=== PATIENT | female | born 1935 | race Caucasian/White ===

== ENCOUNTER 2017-04-28 19:59 | Emergency (ER) | payer OTHER ==
[~2017-04-28] VITALS: Ht 157.5 cm; Wt 108.1 kg
[~2017-04-28 19:59] MED LIST: ASPI81TA21 PO; DONE10TA14 PO; LEVO50TA4 PO; NAME10TA PO; NORT1CAP53 PO; PRAV10 PO; PROP80 PO; STOO100T PO
[2017-04-28 20:14] VITALS: BP 154/67; PULSE 67; RESP 16; TEMP 98.4; O2SAT 95
[2017-04-28] MEDS ORDERED: DONE10TA7 PO (20:39)
[2017-04-28] MEDS ORDERED: LEVO50TA4 PO (20:39)
[2017-04-28] MEDS ORDERED: PRAV10TA PO (20:39)
[2017-04-28] MEDS ORDERED: CHOL1CAP14 PO (20:39)
[2017-04-28] MEDS ORDERED: MEMA28CA PO (20:39)
[2017-04-28] MEDS ORDERED: NORT25CA PO (20:39)
[2017-04-28] MEDS ORDERED: PROP80CA PO (20:39)
[2017-04-28] MEDS ORDERED: ASPI-110 PO (20:39)
[2017-04-28] MEDS ORDERED: IPRA0.06 EACH NARE (20:40)
--- NOTE | 2017-04-28 21:24 | PD ---
HPI Chief Complaint: Fall Time Seen by Provider: 20:45 Travel History International Travel<30 days: No Contact w/Intl Traveler<30days: No Traveled to known affect area: No History of Present Illness HPI 81-year-old female with hypertension dyslipidemia hypothyroidism and dementia presents to the emergency department with family by private transportation for evaluation of bilateral forearm pain left shoulder pain left neck pain and head pain status post unwitnessed fall. relates most of the history as patient has memory disturbance. Patient reportedly was in the bathroom and he heard the patient fall and yell and went to her assistance. Upon his arrival the patient was awake. Patient did complain of bilateral arm pain affecting the forearms and left shoulder such that he was unable to assist her upright from the floor using her upper extremities due to complaint of pain. No deformity was noted. Patient was able to crawl to the bedside and with assistance get up on the bed and then subsequently walked to the car to be brought to the emergency room for evaluation. reports 1 week ago she did have a fall and didn't hit her head again without loss of consciousness. Patient reportedly had a CT brain done last week as an outpatient that was reportedly normal. Patient here complains of head pain as well as left-sided neck pain. Patient does not report any upper extremity or lower extremity numbness tingling or weakness. Patient does not take any blood thinning agents. Pain is estimated as 8/10 in intensity. No other complaints or injury reported. Patient denies back pain flank pain pelvic pain lower extremity pain and no right shoulder pain. Patient denies chest pain pleuritic chest pain rib pain shortness of breath abdominal pain and there is been no nausea or vomiting or recent febrile illness or respiratory illness. No report of bladder or bowel incontinence or saddle anesthesia. [facility] Past Medical History Narrative Medical Depression hypertension dyslipidemia hypothyroidism migraine hysterectomy appendectomy cholecystectomy; no tobacco use; nursing notes reviewed Depression: Yes Diminished Hearing: No Immunizations Current: Yes Migraines: Yes Thyroid Disease: Yes Tetanus Vaccination: Unknown Influenza Vaccination: Yes ?: Not Menopausal: Yes : 2 Para: 2 Past Surgical History Appendectomy: Yes Cholecystectomy: Yes Hysterectomy: Yes Social History Alcohol Use: Yes (OCC) Tobacco Use: No (FORMER) Substance Use: No Allergies-Medications (Allergen,Severity, Reaction): Coded Allergies: No Known Allergies (Unverified , 04/28/17) Reported Meds & Prescriptions Reported Meds & Active Scripts Active Reported Ipratropium Nasal 0.06% [place] 1 Danforth EACH NARE QID Levothyroxine (Levothyroxine Sodium) 50 Mcg Tab 50 Mcg PO DAILY D3 Maximum Strength (Cholecalciferol) 5,000 Unit Cap 5,000 Units PO DAILY Aspirin 81 (Aspirin) 81 Mg Tabdr 81 Mg PO DAILY Nortriptyline (Nortriptyline HCl) 25 Mg Cap 25 Mg PO HS Pravastatin 10 Mg Tab 10 Mg PO DAILY Propranolol ER 24 HR (Propranolol HCl) 80 Mg Cap 80 Mg PO DAILY Donepezil 10 Mg Tab 10 Mg PO HS Namenda Xr (Memantine) 28 Mg Caper 28 Mg PO DAILY Review of Systems Except as stated in HPI: all other systems reviewed are Neg General / Constitutional: No: Fever Eyes: No: Visual changes HENT: Positive: Headaches, Neck Pain Cardiovascular: No: Chest Pain or Discomfort Respiratory: No: Shortness of Breath Gastrointestinal: No: Nausea, Vomiting, Abdominal Pain Genitourinary: No: Pelvic Pain, Flank Pain Musculoskeletal: Positive: Pain (left shoulder bilateral forearm), No: Edema Skin: No Rash Neurologic: No: Weakness Psychiatric: No: Anxiety Hematologic/Lymphatic: No: Easy Bruising Physical Exam Narrative GENERAL: Well-developed well-nourished female in no acute distress no respiratory distress. GCS 14(baseline per ). SKIN: Warm and dry. HEAD: Atraumatic. Normocephalic except for posterior scalp soft tissue swelling and tenderness to palpation. EYES: Pupils equal and round. No scleral icterus. No injection or drainage. ENT: No nasal bleeding or discharge. Mucous membranes pink and moist. NECK: Trachea midline. No JVD. Except to left-sided paracervical tenderness to palpation no bony step-off. CARDIOVASCULAR: Regular rate and rhythm. Chest wall: Nontender no point tenderness. RESPIRATORY: No accessory muscle use. Clear to auscultation. Breath sounds equal bilaterally. GASTROINTESTINAL: Abdomen soft, non-tender, nondistended. Hepatic and splenic margins not palpable. MUSCULOSKELETAL: Extremities without clubbing, cyanosis, or edema. No obvious deformities. Bilateral forearm tenderness to palpation without deformity or edema wrist range of motion intact bilaterally track template maker strength decreased secondary to complain of forearm pain but capillary refill brisk and less than 2 seconds per digit radial pulses 2+ bilaterally. Pain with range of motion of left shoulder without soft tissue swelling or point tenderness. NEUROLOGICAL: Awake and alert. No obvious cranial nerve deficits. Motor grossly within normal limits. Five out of 5 muscle strength in the arms and legs. No pronator drift. No limb ataxia. Normal speech. PSYCHIATRIC: Appropriate mood and affect; insight and judgment normal. Data Data Last Documented VS Vital Signs Date Time Temp Pulse Resp B/P Pulse Ox O2 Delivery O2 Flow Rate FiO2 04/28/17 20:40 18 Room Air 04/28/17 20:14 98.4 67 154/[address] Brain W/O Iv Contrast(Rout) (04/28/17 ) Ct Cerv Spine W/O Contrast (04/28/17 ) Shoulder, Complete (>2vws) (04/28/17 ) Forearm (2vws) (04/28/17 ) Forearm (2vws) (04/28/17 ) Ice/Cold Pack (04/28/17 20:45) Splint Or Brace Apply/Monitor (04/28/17 22:17) Support Splint (04/28/17 22:17) Wrist, Complete ([id number]) (04/28/17 ) Sling Cradle Arm (04/28/17 ) Fiberglass Sugartong Sp Ad Arm (04/28/17 ) Acetaminophen (Tylenol) (04/28/17 22:45) MDM Medical Decision Making Medical Screen Exam Complete: Yes Emergency Medical Condition: Yes Medical Record Reviewed: Yes Interpretation(s) Last Impressions Shoulder X-Ray 04/28/17 0000 Signed Impressions: Service Date/Time: April 21:22 - CONCLUSION: Degenerative change without fracture. Parth Eduardo MD FACR Radius/Ulna X-Ray 04/28/17 0000 Signed Impressions: Service Date/Time: April 21:15 - CONCLUSION: Minimally impacted fracture radial styloid. Parth Eduardo MD FACR Radius/Ulna X-Ray 04/28/17 0000 Signed Impressions: Service Date/Time: April 21:11 - CONCLUSION: Negative for fracture or dislocation. Follow up in 7-10 days is suggested if symptoms persist. Parth Eduardo MD FACR Head CT 04/28/17 0000 Signed Impressions: Service Date/Time: April 21:51 - CONCLUSION: Negative for acute process. Parth Eduardo MD FACR Cervical Spine CT 04/28/17 0000 Signed Impressions: Service Date/Time: April 21:51 - CONCLUSION: Multilevel focal spine degenerative. Moderate to severe bilateral foraminal stenosis present at many levels. There is moderate spinal stenosis with probable short segment cord compression at C5/C6 and C6/C7 and generally mild spinal stenosis at other levels. Please see above. Isra Cabrera MD Vital Signs Date Time Temp Pulse Resp B/P Pulse Ox O2 Delivery O2 Flow Rate FiO2 04/28/17 20:40 18 Room Air 04/28/17 20:14 98.4 67 16 154/67 95 Differential Diagnosis Mechanical fall, minor CHI, ICH, cervical spine sprain strain unlikely fracture , left shoulder contusion sprain strain fracture rotator cuff injury bilateral forearm contusion versus fracture Narrative Course Ice pack applied; imaging studies ordered Left shoulder x-ray: No acute displaced fracture subluxation or dislocation identified, Left forearm x-ray: Ulnar styloid fracture question distal radius fracture, Right forearm x-ray: Positive distal radius fracture with minimal impaction; therefore due to fractures identified to obtain actual x-rays of the bilateral wrists especially since his for poorly visualized fracture of the left wrist. Diagnosis Primary Impression: Right wrist fracture Qualified Code: S62.101A - Closed fracture of right wrist, initial encounter Additional Impression: Degenerative joint disease of cervical spine Qualified Code: M47.812 - Spondylosis of cervical region without myelopathy or radiculopathy Referrals: Orthopedist call for appointment CALL office in the AM to schedule appointment Primary Care Physician 1 day Patient Instructions: General Instructions Additional Instructions: Wear splint Follow-up with primary care provider times one day --- for close follow-up and for orthopedic referral Follow-up with orthopedic surgeon call office in a.m. to schedule follow-up appointment; correctional supervisor orthopedist is Dr. Brewster Take pain medication as prescribed as needed for pain greater than 5/10 in intensity or may use Tylenol per package instructions for pain or for fever 100.4F or greater Return to the emergency department for any concerns or change in condition Use ice intermittently to areas of soft tissue swelling for comfort purposes Wear sling to right upper extremit Med/Other Pt SpecificInfo: Prescription(s) given Scripts Promethazine (Phenergan)25 Mg Qwgrio05.5-25 Mg PO Q6H PRN (NAUSEA OR VOMITING) # 10 TAB Ref 0 Prov:Ana Montero MD 04/28/17 Hydrocodone-Acetaminophen (Lortab)5-325 Mg Tab0.5-1 Tab PO Q6H PRN (PAIN) #10 TAB Ref 0 Prov:Ana Montero MD 04/28/17 Ana Montero MD Apr 28, 2017 21:24
--- NOTE | 2017-04-28 21:42 | RADRPT ---
EXAM DATE/TIME: 04/28/2017 21:11 [facility] COMPARISON: No previous studies available for comparison. INDICATIONS : Trauma post fall. MEDICAL HISTORY : None. SURGICAL HISTORY : None. ENCOUNTER: Initial ACUITY: 1 day PAIN SCORE: 4/10 LOCATION: Left Forearm. FINDINGS: Two view examination of the left forearm demonstrates no evidence of fracture or dislocation. Bony m ineralization is normal. The soft tissue structures are intact. CONCLUSION: Negative for fracture or dislocation. Follow up in 7-10 days is suggested if symptoms persist. Parth Eduardo MD FACR on April 28, 2017 at 21:41 Board Certified Radiologist. This report was verified electronically.
--- NOTE | 2017-04-28 21:43 | RADRPT ---
EXAM DATE/TIME: 04/28/2017 21:15 [facility] COMPARISON: No previous studies available for comparison. INDICATIONS : Trauma post fall. MEDICAL HISTORY : None. SURGICAL HISTORY : None. ENCOUNTER: Initial ACUITY: 1 day PAIN SCORE: 4/10 LOCATION: Right Forearm. FINDINGS: There is minimally impacted fracture radial styloid and regional . Carpus is intact. CONCLUSION: Minimally impacted fracture radial styloid. Parth Eduardo MD FACR on April 28, 2017 at 21:42 Board Certified Radiologist. This report was verified electronically.
--- NOTE | 2017-04-28 21:50 | RADRPT ---
EXAM DATE/TIME: 04/28/2017 21:22 [facility] COMPARISON: No previous studies available for comparison. INDICATIONS : Trauma post fall. MEDICAL HISTORY : None. SURGICAL HISTORY : None. ENCOUNTER: Initial ACUITY: 1 day PAIN SCORE: 7/10 LOCATION: Left Shoulder. FINDINGS: Multiple view examination of the left shoulder demonstrates no evidence of fracture or dislocation. The glenohumeral and acromioclavicular joints are maintained. There is normal range of motion betwee n internal and external rotation. Bony mineralization is normal. Mild ACJ degenerative changes are noted. CONCLUSION: Degenerative change without fracture. Parth Eduardo MD FACR on April 28, 2017 at 21:48 Board Certified Radiologist. This report was verified electronically.
--- NOTE | 2017-04-28 22:37 | RADRPT ---
EXAM DATE/TIME: 04/28/2017 21:51 [facility] COMPARISON: No previous studies available for comparison. INDICATIONS : Frequent falls RADIATION DOSE: 62.13 CTDIvol (mGy) MEDICAL HISTORY : migraine SURGICAL HISTORY : Appendectomy. Rotator cuff, right.Cholecystectomy.Hysterectomy ENCOUNTER: Initial ACUITY: 1 week PAIN SCALE: 0/10 LOCATION: cranial TECHNIQUE: Multiple contiguous axial images were obtained of the head. Using automated exposure control and adj ustment of the mA and/or kV according to patient size, radiation dose was kept as low as reasonably a chievable to obtain optimal diagnostic quality images. DICOM format image data is available electro nically for review and comparison. FINDINGS: CEREBRUM: The ventricles are normal for age. No evidence of midline shift, mass lesion, hemorrhage or acute in farction. No extra-axial fluid collections are seen. POSTERIOR FOSSA: The cerebellum and brainstem are intact. The 4th ventricle is midline. The cerebellopontine angle i s unremarkable. EXTRACRANIAL: The visualized portion of the orbits is intact. SKULL: The calvaria is intact. No evidence of skull fracture. CONCLUSION: Negative for acute process. Parth Eduardo MD FACR on April 28, 2017 at 22:35 Board Certified Radiologist. This report was verified electronically.
[2017-04-28] MEDS ORDERED: ACETAMINOPHEN 325 MG TAB PO ONE (22:45)
--- NOTE | 2017-04-28 23:15 | RADRPT ---
EXAM DATE/TIME: 04/28/2017 21:51 [facility] COMPARISON: No previous studies available for comparison. INDICATIONS : Frequent falls RADIATION DOSE: 25.95 CTDIvol (mGy) MEDICAL HISTORY : migraine SURGICAL HISTORY : Rotator cuff, left. Cholecystectomy.Appendectomy.Hysterectomy ENCOUNTER: Initial ACUITY: 1 week PAIN SCALE: 0/10 LOCATION: neck TECHNIQUE: Volumetric scanning of the cervical spine was performed. Multiplanar reconstructions in the sagittal, coronal and oblique axial planes were performed. Using automated exposure control and adjustment o f the mA and/or kV according to patient size, radiation dose was kept as low as reasonably achievable to obtain optimal diagnostic quality images. DICOM format image data is available electronically f or review and comparison. FINDINGS: VERTEBRAE: Normal vertebral body height. ALIGNMENT: No evidence of subluxation. Mild to moderate degenerative changes are seen anteriorly and laterally at C1/C2. C2-C3: Mild disc space narrowing. Small, broad posterior disc osteophyte complex and moderate bilateral unco vertebral and facet osteoarthritis. No significant foraminal or spinal stenosis. C3-C4: Moderate to severe disc space narrowing and a moderate, broad posterior disc osteophyte complex. Ther e is moderate to severe bilateral uncovertebral and facet osteoarthritis. There is moderate to severe bilateral foraminal stenosis. Mild spinal stenosis. C4-C5: The disc has severe loss of height. Small, broad posterior disc osteophyte complex and moderate to se santo bilateral uncovertebral and facet osteoarthritis present. There is moderate to severe bilateral foraminal stenosis. There is mild spinal stenosis without cord compression. C5-C6: The disc has severe loss of height. There is a moderate, broad/diffuse disc osteophyte complex and mo derate to severe bilateral uncovertebral and facet osteoarthritis. There is moderate spinal stenosis and probably short segment cord compression. There is moderate to severe bilateral foraminal stenosis . C6-C7: The disc has severe loss of height. There is a small, broad/diffuse disc osteophyte complex and moder ate to severe bilateral uncovertebral and facet osteoarthritis. There is moderate spinal stenosis and probable short segment cord compression. There is moderate to severe bilateral foraminal stenosis. C7-T1: The disc as severe loss of height. There is a small, broad posterior disc osteophyte complex and mode rate bilateral facet osteoarthritis. There is mild to moderate spinal stenosis and moderate to severe bilateral foraminal stenosis. CONCLUSION: Multilevel focal spine degenerative. Moderate to severe bilateral foraminal stenosis present at many levels. There is moderate spinal stenosis with probable short segment cord compression at C5/C6 and C 6/C7 and generally mild spinal stenosis at other levels. Please see above. Isra Cabrera MD on April 28, 2017 at 23:05 Board Certified Radiologist. This report was verified electronically.
[2017-04-28] MEDS ORDERED: PROM25TA10 PO (23:36)
[2017-04-28] MEDS ORDERED: HYDR-3533 PO (23:36)
--- NOTE | 2017-04-28 23:44 | RADRPT ---
EXAM DATE/TIME: 04/28/2017 22:53 [facility] COMPARISON: No previous studies available for comparison. INDICATIONS : Trauma post fall. MEDICAL HISTORY : None. SURGICAL HISTORY : None. ENCOUNTER: Initial ACUITY: 1 day PAIN SCORE: 7/10 LOCATION: Left upper extremity wrist FINDINGS: Bones are diffusely osteopenic. There is a minimally displaced fracture in the physeal scar region of the distal left radius with slight dorsal angulation deformity. I don't see intra-articular involvem ent. No subluxations. Carpal bones are intact. CONCLUSION: Minimally displaced [id number] fracture of the distal radius with slight dorsal angulation. Isra Cabrera MD on April 28, 2017 at 23:42 Board Certified Radiologist. This report was verified electronically.
[2017-04-29 00:06] VITALS: BP 145/65; PULSE 66; RESP 18; O2SAT 97
== END 2017-04-29 01:09 | disposition home or self-care (01) ==
LOC: PHED 19:59
DX: S52.511A Displaced fracture of right radial styloid process, initial encounter for closed fracture (principal); S52.592A Other fractures of lower end of left radius, initial encounter for closed fracture; M47.812 Spondylosis without myelopathy or radiculopathy, cervical region; M25.512 Pain in left shoulder; R51 Headache; W18.30XA Fall on same level, unspecified, initial encounter; Y93.89 Activity, other specified; Y92.002 Bathroom of unspecified non-institutional (private) residence as the place of occurrence of the external cause; I10 Essential (primary) hypertension; E78.5 Hyperlipidemia, unspecified; E03.9 Hypothyroidism, unspecified
CPT/HCPCS: 29125; 70450; 72125; 73030; 73090; 73110

== ENCOUNTER 2017-07-19 11:08 | Emergency (ER) | payer OTHER ==
[~2017-07-19] VITALS: Ht 167.6 cm; Wt 81.0 kg
[~2017-07-19 11:08] MED LIST changes: +ASPI1TAB57 PO; -ASPI81TA21 PO; +D 50CAP2 PO; -DONE10TA14 PO; +DONE10TA7 PO; +HYDR-3533 PO; +IPRA0.06 EACH NARE; +MEMA28CA PO; -NAME10TA PO; -NORT1CAP53 PO; +NORT25CA PO; -PRAV10 PO; +PRAV10TA PO; +PROM25TA10 PO; -PROP80 PO; +PROP80CA PO; -STOO100T PO
[2017-07-19 11:12] VITALS: BP 127/65; PULSE 76; RESP 16; TEMP 97.7; O2SAT 96
--- NOTE | 2017-07-19 11:38 | PD ---
HPI Chief Complaint: GI Complaint Time Seen by Provider: 11:21 Travel History International Travel<30 days: No Contact w/Intl Traveler<30days: No Traveled to known affect area: No History of Present Illness HPI This 81-year-old female comes for evaluation of possible rectal bleeding. History is largely obtained from the as the patient has dementia. He reports that she's been having small amounts of blood in the stool Tuesday. She had diarrhea during the day and then had some blood in the stool. It's been intermittent since then. She has had appendectomy, hysterectomy and cholecystectomy PFSH Past Medical History Hx Anticoagulant Therapy: Yes (BABY ASA DAILY) Depression: Yes Diminished Hearing: No Immunizations Current: Yes Migraines: Yes Thyroid Disease: Yes Influenza Vaccination: Yes ?: Not Menopausal: Yes : 2 Para: 2 Past Surgical History Appendectomy: Yes Cholecystectomy: Yes Hysterectomy: Yes Social History Alcohol Use: Yes (OCC) Tobacco Use: No (FORMER) Substance Use: No Allergies-Medications (Allergen,Severity, Reaction): Coded Allergies: No Known Allergies (Unverified Adverse Reaction, Unknown, 07/19/17) Reported Meds & Prescriptions Reported Meds & Active Scripts Active Reported Ipratropium Nasal 0.06% Atkins 1 Atkins EACH NARE QID Levothyroxine (Levothyroxine Sodium) 50 Mcg Tab 50 Mcg PO DAILY D3 Maximum Strength (Cholecalciferol) 5,000 Unit Cap 5,000 Units PO DAILY Aspirin 81 (Aspirin) 81 Mg Tabdr 81 Mg PO DAILY Nortriptyline (Nortriptyline HCl) 25 Mg Cap 25 Mg PO HS Pravastatin 10 Mg Tab 10 Mg PO DAILY Propranolol ER 24 HR (Propranolol HCl) 80 Mg Cap 80 Mg PO DAILY Donepezil 10 Mg Tab 10 Mg PO HS Namenda Xr (Memantine) 28 Mg Caper 28 Mg PO DAILY Review of Systems General / Constitutional: No: Fever, Chills Eyes: No: Diploplia, Blurred Vision HENT: No: Headaches, Vertigo Cardiovascular: No: Chest Pain or Discomfort, Palpitations Respiratory: No: Cough, Shortness of Breath Gastrointestinal: Positive: Hematochezia, No: Nausea, Diarrhea, Abdominal Pain Genitourinary: No: Urgency, Frequency Skin: No Rash, No Itching Neurologic: No: Weakness Endocrine: No: Heat Intolerance, Cold Intolerance Hematologic/Lymphatic: No: Easy Bruising Physical Exam Narrative GENERAL: Well-developed female SKIN: Focused skin assessment warm/dry. HEAD: Atraumatic. Normocephalic. EYES: Pupils equal and round. No scleral icterus. No injection or drainage. ENT: No nasal bleeding or discharge. Mucous membranes pink and moist. NECK: Trachea midline. No JVD. CARDIOVASCULAR: Regular rate and rhythm. No murmur appreciated. RESPIRATORY: No accessory muscle use. Clear to auscultation. Breath sounds equal bilaterally. GASTROINTESTINAL: Abdomen soft, non-tender, nondistended. Hepatic and splenic margins not palpable. Rectal exam was done. There is some external hemorrhoidal skin tags. There are no masses felt. Stool was not obtained for evaluation MUSCULOSKELETAL: No obvious deformities. No clubbing. No cyanosis. No edema. NEUROLOGICAL: Awake and alert. No obvious cranial nerve deficits. Motor grossly within normal limits. Normal speech. PSYCHIATRIC: Appropriate mood and affect; insight and judgment normal. Data Data Last Documented VS Vital Signs Date Time Temp Pulse Resp B/P (MAP) Pulse Ox O2 Delivery O2 Flow Rate FiO2 07/19/17 11:12 97.7 76 16 127/65 (85) 96 Orders Orders Complete Blood Count With Diff (07/19/17 11:36) Comprehensive Metabolic Panel (07/19/17 11:36) Ct Abd/Pel W Iv Contrast(Rout) (07/19/17 12:29) Urinalysis - C+S If Indicated (07/19/17 12:30) Urine Culture (07/19/17 12:41) Iohexol 350 Inj (Omnipaque 350 Inj) (07/19/17 13:35) Labs Laboratory Tests Test 07/19/17 11:50 07/19/17 12:41 White Blood Count 17.6 TH/MM3 Red Blood Count 4.49 MIL/MM3 Hemoglobin 14.4 GM/DL Hematocrit 43.1 % Mean Corpuscular Volume 96.2 FL Mean Corpuscular Hemoglobin 32.2 PG Mean Corpuscular Hemoglobin Concent 33.5 % Red Cell Distribution Width 15.2 % Platelet Count 652 TH/MM3 Mean Platelet Volume 9.9 FL Neutrophils (%) (Auto) 73.0 % Lymphocytes (%) (Auto) 12.3 % Monocytes (%) (Auto) 8.3 % Eosinophils (%) (Auto) 2.4 % Basophils (%) (Auto) 4.0 % Neutrophils # (Auto) 12.8 TH/MM3 Lymphocytes # (Auto) 2.2 TH/MM3 Monocytes # (Auto) 1.5 TH/MM3 Eosinophils # (Auto) 0.4 TH/MM3 Basophils # (Auto) 0.7 TH/MM3 CBC Comment DIFF FINAL Differential Comment Blood Urea Nitrogen 24 MG/DL Creatinine 1.10 MG/DL Random Glucose 134 MG/DL Total Protein 7.5 GM/DL Albumin 3.8 GM/DL Calcium Level 9.2 MG/DL Alkaline Phosphatase 104 U/L Aspartate Amino Transf (AST/SGOT) 16 U/L Alanine Aminotransferase (ALT/SGPT) 23 U/L Total Bilirubin 0.7 MG/DL Sodium Level 142 MEQ/L Potassium Level 3.9 MEQ/L Chloride Level 105 MEQ/L Carbon Dioxide Level 27.0 MEQ/L Anion Gap 10 MEQ/L Estimat Glomerular Filtration Rate 47 ML/MIN Urine Collection Type CLEAN CATCH Urine Color YELLOW Urine Turbidity SLIGHT Urine pH 5.5 Urine Specific [place] 1.025 Urine Protein NEG mg/dL Urine Glucose (UA) NEG mg/dL Urine Ketones TRACE mg/dL Urine Occult Blood NEG Urine Nitrite NEG Urine Bilirubin NEG Urine Leukocyte Esterase TRACE Urine WBC 6-8 /hpf Urine WBC Clumps FEW Urine Squamous Epithelial Cells > 8 /hpf Urine Amorphous Sediment MOD Urine Bacteria FEW /hpf Urine Hyaline Casts 0-2 /lpf Microscopic Urinalysis Comment CULTURE INDICATED Urine Collection Time 1241 MDM Medical Decision Making Medical Screen Exam Complete: Yes Emergency Medical Condition: Yes Medical Record Reviewed: Yes Differential Diagnosis Differential includes GI bleed, colitis, hemorrhoidal bleeding Narrative Course Hemoglobin today is 14 with a white count of 17.6. Etiology for the elevation in the white count is not clear. In view of the symptoms of rectal bleeding I have ordered a CT scan to assess for possible colitis. CT scan has been done. There is mild diverticulosis with mild wall thickening and questionable inflammatory changes involving the sigmoid which could decayed mild diverticulitis. Diagnosis Primary Impression: Diverticulitis Qualified Codes: K57.32 - Diverticulitis of large intestine without perforation or abscess without bleeding Scripts Amoxicillin-Clavulanate (Augmentin) 875-125 Mg Tab 1 TAB PO BID for Infection for 10 Days, #20 TAB 0 Refills Prov: Kuldip Hughes MD 07/19/17 Disposition: 01 DISCHARGE HOME Condition: Stable Kuldip Hughes MD Jul 19, 2017 11:38
[2017-07-19 12:05] LABS: AUTOMATED NEUTROPHIL # 12.8 TH/MM3 (1.8-7.7); BASOPHIL # 0.7 TH/MM3 (0-0.2); EOSINOPHIL # 0.4 TH/MM3 (0-0.4); EOSINOPHIL % 2.4 % (0.0-4.0); HEMATOCRIT 43.1 % (35.0-46.0); LYMPH % 12.3 % (9.0-44.0); LYMPHOCYTE # 2.2 TH/MM3 (1.0-4.8); MEAN CELL VOLUME 96.2 FL (80.0-100.0); MEAN CORPUSCULAR HEMOGLOBIN 32.2 PG (27.0-34.0); MEAN CORPUSCULAR HGB CONC 33.5 % (32.0-36.0); MONO % 8.3 % (0.0-8.0); PLATELET COUNT 652 TH/MM3 (150-450); RED BLOOD COUNT 4.49 MIL/MM3 (4.00-5.30); RED CELL DISTRIBUTION WIDTH 15.2 % (11.6-17.2); WHITE BLOOD COUNT 17.6 TH/MM3 (4.0-11.0)
[2017-07-19 12:11] LABS: HEMO FLAGS DIFF FINAL
[2017-07-19 12:48] LABS: BLOOD, URINE NEG (NEG); GLUCOSE,URINE NEG (NEG); KETONE, URINE TRACE mg/dL (NEG); NITRITE,URINE NEG (NEG); PH, URINE 5.5 (5.0-8.5)
[2017-07-19 12:49] LABS: CHLORIDE 105 MEQ/L (98-107); POTASSIUM 3.9 MEQ/L (3.5-5.1); SODIUM (NA) 142 MEQ/L (136-145)
[2017-07-19 12:56] LABS: ANION GAP 10 MEQ/L (5-15); BLOOD UREA NITROGEN 24 MG/DL (7-18)
[2017-07-19 12:59] LABS: ALT (GPT) 23 U/L (10-53); AST (GOT) 16 U/L (15-37); GLOMERULAR FILTRATION RATE 47 ML/MIN (>89)
[2017-07-19 13:02] LABS: ALKALINE PHOSPHATASE 104 U/L (45-117); TOTAL BILIRUBIN ADULT 0.7 MG/DL (0.2-1.0)
[2017-07-19 13:14] LABS: METHOD OF COLLECTION CLEAN CATCH; URINE COLOR YELLOW (YELLW/STRAW)
[2017-07-19 13:15] LABS: BACTERIA, URINE FEW /hpf; CULTURE IF INDICATED CULTURE INDICATED
[2017-07-19 13:16] LABS: COMMENT (UR) CULTURE INDICATED; COMMENT2 (UR) MUCOUS PRESENT; HYALINE CAST, URINE 0-2 /lpf (RARE); SQUAMOUS EPITHELIAL CELL URINE > 8 /hpf (0-5)
[2017-07-19] MEDS ORDERED: IOHEXOL 350 MG/ML 10 ML VIAL (for RAD DIAG) IVCONTRAST ONE (13:35)
--- NOTE | 2017-07-19 14:20 | RADRPT ---
EXAM DATE/TIME: 07/19/2017 13:26 [place] COMPARISON: No previous studies available for comparison. INDICATIONS : Rectal bleeding. IV CONTRAST: 85 cc Omnipaque 350 (iohexol) IV ORAL CONTRAST: No oral contrast ingested. RADIATION DOSE: 18.44 CTDIvol (mGy) MEDICAL HISTORY : Anti coagulant therapy. SURGICAL HISTORY : Appendectomy. Cholecystectomy.Hysterectomy. ENCOUNTER: Initial ACUITY: 3 days PAIN SCALE: 5/10 LOCATION: abdomen TECHNIQUE: Volumetric scanning of the abdomen and pelvis was performed. Using automated exposure control and ad justment of the mA and/or kV according to patient size, radiation dose was kept as low as reasonably achievable to obtain optimal diagnostic quality images. DICOM format image data is available electro nically for review and comparison. FINDINGS: LOWER LUNGS: The visualized lower lungs are clear. LIVER: Homogeneous density without lesion. There is no dilation of the biliary tree. There is mild hepatic steatosis. The patient is status post cholecystectomy. SPLEEN: Normal size and shape with multiple subtle low attenuation areas throughout the spleen measuring up t o approximately 8 mm. PANCREAS: Within normal limits. KIDNEYS: Normal in size and shape. There is no solid mass, stone or hydronephrosis. There is a simple cyst ex tending off the lateral left kidney measuring up to 1 cm. ADRENAL GLANDS: Within normal limits. VASCULAR: There is no aortic aneurysm. BOWEL/MESENTERY: There is apparent subtle mild wall thickening involving portions of the sigmoid colon with small scat tered diverticuli and questionable mild inflammatory change with no focal mass or fluid collection. T he bowel gas pattern is unremarkable. ABDOMINAL WALL: Within normal limits. RETROPERITONEUM: There is no lymphadenopathy. BLADDER: No wall thickening or mass. REPRODUCTIVE: Within normal limits. INGUINAL: There is no lymphadenopathy or hernia. MUSCULOSKELETAL: Within normal limits for patient age. CONCLUSION: 1. Mild diverticulosis with mild wall thickening and questionable minimal inflammatory change involvi ng the sigmoid colon which could indicate mild diverticulitis. 2. Multiple small low attenuation areas in the spleen which is normal in size. This is nonspecific. 3. Mild hepatic steatosis. 4. Status post cholecystectomy. Kyrie Dunn MD on July 19, 2017 at 14:14 Board Certified Radiologist. This report was verified electronically.
[2017-07-19] MEDS ORDERED: AUGM875T3 PO (14:24)
[2017-07-19 14:46] VITALS: BP 120/80
== END 2017-07-19 14:48 | disposition home or self-care (01) ==
LOC: PHED 11:08
DX: K57.32 Diverticulitis of large intestine without perforation or abscess without bleeding (principal); R82.71 Bacteriuria
CPT/HCPCS: 74177; 80053; 81001; 85025; 87086; 99284; Q9967